=== PATIENT | female | born 1970 | race Caucasian/White ===

== ENCOUNTER 2020-11-09 19:44 | Emergency (ER) | payer OTHER ==
[~2020-11-09] VITALS: Ht 175.3 cm; Wt 123.8 kg
[~2020-11-09 19:44] MED LIST: GLIP10TA12 PO; METF-1022 PO
[2020-11-09 19:57] VITALS: BP 149/76
--- NOTE | 2020-11-09 19:57 | NUR ---
TO BED AMBULATORY WITH FRIEND
--- NOTE | 2020-11-09 20:20 | NUR ---
PT PRESENTED TO ED C/O RLQ ABD PAIN X 1700. PT SAYS, "I WAS INJECTING MYSELF WITH MY INSULIN AND I THINK THE NEEDLE BROKE OFF AND GOT STUCK IN MY STOMACH AREA." ABD IS ROUND, SOFT, ACTIVE BS, AND TENDERNESS TO TOUCH ON RLQ. +REDNESS AND BUMP/HARD OBJECT NOTED DURING PALPATION. VSS. A&OX4. 4/10 PAIN AND DESCRIBES IT "STINGING." +NAUSEA. PMH: DM, HTN, HIGH CHOLESTEROL NKDA.
--- NOTE | 2020-11-09 20:57 | NUR ---
MD AT BEDSIDE WITH US FOR BEDSIDE FOR PROCEDURE.
[2020-11-09] MEDS ORDERED: LIDOCAINE/EPI 1% 1:100000 20 ML VIAL INJ ONE ×2 (21:00→21:03)
--- NOTE | 2020-11-09 21:14 | NUR ---
LIDOCAINE AND LAC TRAY AT BEDSIDE FOR MD PROCEDURE.
[2020-11-09] MEDS ORDERED: HYDROcodone/APAP 10/325 MG 1 TAB TAB PO STA (21:58)
--- NOTE | 2020-11-09 22:59 | NUR ---
PT TAKEN TO CT VIA W/C.
--- NOTE | 2020-11-09 23:05 | NUR ---
PT RETURNED BACK FROM CT VIA W/C.
[2020-11-09] MEDS ORDERED: CEPH-588 PO (23:47)
[2020-11-09] MEDS ORDERED: cephALEXin 500 MG CAP PO ONE (23:50)
[2020-11-10 00:05] VITALS: BP 151/77
== END 2020-11-10 00:05 | disposition home or self-care (01) ==
LOC: MED 19:44
DX: S30.851A Superficial foreign body of abdominal wall, initial encounter (principal); E11.9 Type 2 diabetes mellitus without complications; I10 Essential (primary) hypertension; Z79.84 Long term (current) use of oral hypoglycemic drugs; Z79.899 Other long term (current) drug therapy; X58.XXXA Exposure to other specified factors, initial encounter; Y93.89 Activity, other specified; Y92.89 Other specified places as the place of occurrence of the external cause; Y99.8 Other external cause status
CPT/HCPCS: 10120; 74176; 99284; J2001

== ENCOUNTER 2020-11-16 18:59 | Emergency (ER) | payer OTHER ==
[~2020-11-16] VITALS: Ht 175.3 cm; Wt 126.6 kg
[~2020-11-16 18:59] MED LIST changes: +CEPH-588 PO
[2020-11-16 19:15] VITALS: BP 150/78
--- NOTE | 2020-11-16 19:22 | NUR ---
PT AMBULATED TO BED 8
--- NOTE | 2020-11-16 19:31 | NUR ---
Dr. Marrero examining patient.
--- NOTE | 2020-11-16 19:34 | NUR ---
Patient assessment completed per ERMD, no nursing interventions required at this time.
[2020-11-16 20:10] VITALS: BP 150/78
--- NOTE | 2020-11-16 20:10 | NUR ---
Patient discharged with v/s stable. Written and verbal after care instructions given and explained. Patient verbalized understanding. Ambulatory with steady gait with RN to help lead the way. ID band removed. All questions addressed prior to discharge. Advised to follow up with PMD.
== END 2020-11-16 20:10 | disposition home or self-care (01) ==
LOC: MED 18:59
DX: Z48.00 Encounter for change or removal of nonsurgical wound dressing (principal); E11.9 Type 2 diabetes mellitus without complications; I10 Essential (primary) hypertension
CPT/HCPCS: 99281